=== PATIENT | female | born 1950 | race Caucasian/White ===

== ENCOUNTER 2022-01-11 13:56 | Emergency (ER) | payer MEDICARE ==
[2022-01-11] MEDS ORDERED: Albuterol/Ipratropium 3.0-0.5 MG/3 ML Neb Soln NEB ONE (14:25)
[2022-01-11] MEDS ORDERED: Sodium Chloride 0.9% 10 ML Syringe FLUSH PRN (14:25)
[2022-01-11] MEDS ORDERED: Sodium Chloride 0.9% 1,000 ML IV SCH (14:30)
[2022-01-11] MEDS ORDERED: Ketorolac 30 MG/ML SDV IVPUSH ONE (14:55)
[2022-01-11 15:01] LABS: ESTIMATED GFR 79 mL/min (>60); TROPONIN I HIGH SENSITIVITY 6.2 pg/mL (<=60.3)
[2022-01-11] MEDS ORDERED: Sodium Chloride 0.9% 100 ML IV SCH (16:30)
[2022-01-11] MEDS ORDERED: Iopamidol 755 Mg/ML 100 ML Bottle IV SCH (16:30)
[2022-01-11] MEDS ORDERED: Piperacillin/Tazobactam 4.5 GM in Sodium Chloride 0.9% 50 ML IV ONE (18:18)
== END 2022-01-11 21:17 ==
LOC: JP.ED 13:56
DX: R09.02 Hypoxemia (principal)
CPT/HCPCS: 36415; 71275; 80053; 83605; 84145; 84484; 85025; 85379; 86140; 87040; 94640; 96365; 96367; 96375; 99285; J1885; J2543; J3370; J3490; J7030; J7050; Q9967; J7620

== ENCOUNTER 2023-05-21 10:42 | Inpatient (IN) | payer MEDICARE ==
[2023-05-21 11:28] LABS: BASOPHILS ABSOLUTE AUTO 0.03 K/uL (0.00-0.10); BASOPHILS PERCENT AUTO 0.2 % (0.1-1.3); EOSINOPHILS ABSOLUTE AUTO 0.28 K/uL (0.00-0.40); EOSINOPHILS PERCENT AUTO 1.7 % (0.0-5.4); HEMATOCRIT 36.3 % (34.3-46.0); HEMOGLOBIN 11.6 g/dL (11.2-15.5); IMMATURE GRAN PERCENT AUTO 0.6 % (0.0-0.7); LYMPHOCYTES ABSOLUTE AUTO 1.54 K/uL (0.8-3.3); LYMPHOCYTES PERCENT AUTO 9.4 % (11.4-47.7); MEAN CORPUSCULAR HEMOGLOBIN 24.2 pg (31.6-35.5); MEAN CORPUSCULAR VOLUME 75.8 fL (81.4-99.0); MONOCYTES ABSOLUTE AUTO 1.22 K/uL (0.20-0.90); MONOCYTES PERCENT AUTO 7.4 % (3.3-12.6); NEUTROPHILS ABSOLUTE AUTO 13.27 K/uL (1.0-7.6); NEUTROPHILS PERCENT AUTO 80.7 % (40.0-78.1); PLATELET COUNT,PLT 422 K/uL (130-375); RED BLOOD CELL COUNT 4.79 M/uL (3.77-5.24); WHITE BLOOD CELL COUNT,WBC 16.4 K/uL (3.2-11.0)
[2023-05-21] MEDS: Albuterol 0.083% 2.5 MG/3 ML Neb Soln NEB ONE (11:33)
[2023-05-21 11:55] LABS: A/G RATIO 0.3 (1.2-2.2); ALANINE AMINOTRANSFERASE,ALT 26 U/L (12-78); ALBUMIN 2.1 g/dL (3.4-5.0); ALKALINE PHOSPHATASE 113 U/L (46-116); BILIRUBIN TOTAL 0.3 mg/dL (0.2-1.0); BLOOD UREA NITROGEN,BUN 11 mg/dL (7-18); CALCIUM 8.3 mg/dL (8.5-10.1); CARBON DIOXIDE,CO2 28 mmol/L (21-32); CHLORIDE,CL 101 mmol/L (100-108); CREATININE 0.8 mg/dL (0.6-1.0); EST CRCL DRUG DOSING (CG) 53.35 mL/min; ESTIMATED GFR 79 mL/min (>60); GLUCOSE RANDOM 124 mg/dL (74-106); POTASSIUM,K 3.3 mmol/L (3.6-5.2); PROTEIN TOTAL,TP 8.6 g/dL (6.4-8.2); SODIUM,NA 139 mmol/L (140-148)
[2023-05-21 12:00] LABS: BASE EXCESS ARTERIAL 1.7 mm/L; BICARBONATE,ARTERIAL 23.5 mmol/L (22.0-26.0); CARBOXYHEMOGLOBIN 2.6 % (0.0-1.6); METHEMOGLOBIN 0.8 %; O2 SATURATION ARTERIAL 96.3 % (95.0-98.0); PCO2 ARTERIAL 28.9 mmHg (35.0-42.0); PO2 ARTERIAL 75.1 mmHg (75.0-100.0); TOTAL HEMOGLOBIN 12.4 g/dL (12.0-16.0)
[2023-05-21 12:03] LABS: CORONAVIRUS COVID-19 NAA NEGATIVE (NEGATIVE); INFLUENZA A NAA NEGATIVE (NEGATIVE); INFLUENZA B NAA NEGATIVE (NEGATIVE); RESPIRATORY SYNCYTIAL VIR NAA NEGATIVE (NEGATIVE)
[2023-05-21 12:07] LABS: ANION GAP 13.3 mmol/L (5.0-14.0)
[2023-05-21] MEDS: cefTRIAXone 2 GM in Sodium Chloride 0.9% 50 ML IV ONE (12:08)
[2023-05-21 12:30] LABS: ASPARTATE AMNIOTRANSFERASE,AST 33 U/L (15-37)
[2023-05-21] MEDS: Sodium Chloride 0.9% 10 ML Syringe FLUSH PRN (12:34)
[2023-05-21] MEDS: Ibuprofen 600 MG Tab PO ONE (13:08)
[2023-05-21] MEDS: Pregabalin 75 MG Cap PO ONE (13:08)
[2023-05-21] MEDS: Sodium Chloride 0.9% 1,000 ML IV SCH (13:14)
[2023-05-21 14:43] LABS: APPEARANCE,URINE SLIGHTLY CLOUDY (CLEAR); BILIRUBIN,URINE NEGATIVE (NEGATIVE); COLOR,URINE YELLOW (YELLOW); GLUCOSE,URINE NEGATIVE (NEGATIVE); KETONES,URINE NEGATIVE (NEGATIVE); LEUKOCYTE ESTERASE,URINE NEGATIVE (NEGATIVE); NITRITE,URINE NEGATIVE (NEGATIVE); OCCULT BLOOD,URINE SMALL (NEGATIVE); PROTEIN,URINE 30 mg/dL (NEGATIVE); UROBILINOGEN,URINE 0.2 EU/dL (0.2-1.0)
[2023-05-21 14:49] LABS: AMORPHOUS SEDIMENT,URINE NOT SEEN; BACTERIA,URINE FEW; EPITHELIAL CELLS,URINE RARE; MUCUS,URINE NOT SEEN; WBC,URINE 0-5 (0-5)
[2023-05-21] MEDS ORDERED: Ondansetron 4 MG/2 ML SDV IV PRN (16:27)
[2023-05-21] MEDS ORDERED: Sennosides/Docusate Sodium 50-8.6 MG Tab PO PRN (16:27)
[2023-05-21] MEDS ORDERED: Magnesium Hydroxide 400 MG/5 ML Susp 30 ML Cup PO PRN (16:27)
[2023-05-21] MEDS: Levofloxacin/Dextrose 5%-Water 750 MG in Premix Bag 1 BAG IV SCH (16:31)
[2023-05-21] MEDS: Potassium Chloride 20 MEQ Tab.ER PO ONE (17:46)
[2023-05-21] MEDS: Enoxaparin 40 MG/0.4 ML Syringe SUBCUT SCH (17:46)
[2023-05-21] MEDS: methylPREDNISolone Sodium Succinate 125 MG/2 ML SDV IVPUSH ONE (17:46)
[2023-05-21] MEDS: Acetaminophen 325 MG Tab PO PRN (18:05)
[2023-05-21] MEDS: Melatonin 3 MG Tab PO PRN (20:39)
[2023-05-21] MEDS: Pregabalin 75 MG Cap PO SCH (20:39)
[2023-05-21] MEDS: Lactobacillus Rhamnosus GG (Probiotic) Cap PO SCH (20:39)
[2023-05-21] MEDS: Albuterol 0.083% 2.5 MG/3 ML Neb Soln NEB PRN (23:40)
[2023-05-22] MEDS: Sodium Chloride 0.9% 1,000 ML IV SCH (00:54)
[2023-05-22 05:56] LABS: HEMATOCRIT 34.4 % (34.3-46.0); MEAN CORPUSCULAR HEMOGLOBIN 24.6 pg (31.6-35.5); MEAN CORPUSCULAR VOLUME 76.8 fL (81.4-99.0); RED BLOOD CELL COUNT 4.48 M/uL (3.77-5.24); WHITE BLOOD CELL COUNT,WBC 13.4 K/uL (3.2-11.0)
[2023-05-22 06:11] LABS: ANION GAP 11.2 mmol/L (5.0-14.0); CALCIUM 8.4 mg/dL (8.5-10.1); CREATININE 0.8 mg/dL (0.6-1.0); EST CRCL DRUG DOSING (CG) 53.35 mL/min; POTASSIUM,K 3.8 mmol/L (3.6-5.2)
[2023-05-22] MEDS: predniSONE 20 MG Tab PO SCH (08:09)
[2023-05-22] MEDS: cefTRIAXone 2 GM in Sodium Chloride 0.9% 50 ML IV SCH (11:44)
[2023-05-22] MEDS: Benzonatate 100 MG Cap PO PRN (11:49)
[2023-05-23 05:25] LABS: HEMATOCRIT 32.9 % (34.3-46.0); HEMOGLOBIN 10.4 g/dL (11.2-15.5); MEAN CORPUSCULAR HEMOGLOBIN 24.4 pg (31.6-35.5); MEAN CORPUSCULAR HGB CONC 31.6 g/dL (31.6-35.5); RED BLOOD CELL COUNT 4.27 M/uL (3.77-5.24); WHITE BLOOD CELL COUNT,WBC 18.7 K/uL (3.2-11.0)
[2023-05-23 05:54] LABS: C-REACTIVE PROTEIN 11.85 mg/dL (<0.50); CALCIUM 8.3 mg/dL (8.5-10.1); CREATININE 0.7 mg/dL (0.6-1.0); EST CRCL DRUG DOSING (CG) 60.98 mL/min; POTASSIUM,K 3.3 mmol/L (3.6-5.2)
[2023-05-23 06:05] LABS: ANION GAP 12.3 mmol/L (5.0-14.0)
[2023-05-23] MEDS: Potassium Chloride 20 MEQ Tab.ER PO ONE (08:24)
[2023-05-23] MEDS: Iopamidol 755 Mg/ML 100 ML Bottle IV ONE (12:45)
[2023-05-23] MEDS: Sodium Chloride 0.9% 100 ML IV SCH (12:46)
[2023-05-23] MEDS: Meropenem 1 GM in Sodium Chloride 0.9% 100 ML IV SCH (14:14)
[2023-05-23] MEDS: Doxycycline 100 MG in Sodium Chloride 0.9% 100 ML IV SCH (15:34)
[2023-05-24] MEDS: guaiFENesin/Dextromethorphan 100-10 MG/5 ML Soln 10 ML Cup PO PRN (04:43)
[2023-05-24 05:02] LABS: HEMATOCRIT 35.8 % (34.3-46.0); HEMOGLOBIN 11.5 g/dL (11.2-15.5); MEAN CORPUSCULAR HEMOGLOBIN 24.2 pg (31.6-35.5); MEAN CORPUSCULAR HGB CONC 32.1 g/dL (31.6-35.5); MEAN CORPUSCULAR VOLUME 75.2 fL (81.4-99.0); RED BLOOD CELL COUNT 4.76 M/uL (3.77-5.24); WHITE BLOOD CELL COUNT,WBC 17.6 K/uL (3.2-11.0)
[2023-05-24 05:20] LABS: CALCIUM 8.4 mg/dL (8.5-10.1); CREATININE 0.8 mg/dL (0.6-1.0); EST CRCL DRUG DOSING (CG) 53.35 mL/min; POTASSIUM,K 3.8 mmol/L (3.6-5.2)
[2023-05-24 05:25] LABS: ANION GAP 12.8 mmol/L (5.0-14.0)
[2023-05-24] MEDS: Albuterol 0.083% 2.5 MG/3 ML Neb Soln NEB SCH (11:24)
[2023-05-24] MEDS: Codeine/guaiFENesin 10-100 MG/5 ML Syrup 5 ML Cup PO PRN (15:42)
[2023-05-24] MEDS: Codeine/guaiFENesin 10-100 MG/5 ML Syrup 5 ML Cup PO ONE (20:30)
[2023-05-24] MEDS: Benzocaine/Cetylpyridinium/Menthol Lozenge MUCMEM PRN (21:30)
[2023-05-25] MEDS: Codeine/guaiFENesin 10-100 MG/5 ML Syrup 5 ML Cup PO PRN (04:22)
[2023-05-25 04:42] LABS: HEMATOCRIT 36.2 % (34.3-46.0); HEMOGLOBIN 11.5 g/dL (11.2-15.5); MEAN CORPUSCULAR HEMOGLOBIN 24.2 pg (31.6-35.5); MEAN CORPUSCULAR HGB CONC 31.8 g/dL (31.6-35.5); MEAN CORPUSCULAR VOLUME 76.2 fL (81.4-99.0); RED BLOOD CELL COUNT 4.75 M/uL (3.77-5.24); WHITE BLOOD CELL COUNT,WBC 15.1 K/uL (3.2-11.0)
[2023-05-25 05:04] LABS: ANION GAP 7.7 mmol/L (5.0-14.0); C-REACTIVE PROTEIN 17.29 mg/dL (<0.50); CALCIUM 8.7 mg/dL (8.5-10.1); CREATININE 0.7 mg/dL (0.6-1.0); EST CRCL DRUG DOSING (CG) 60.98 mL/min; MAGNESIUM 2.1 mg/dL (1.8-2.4); POTASSIUM,K 3.7 mmol/L (3.6-5.2)
[2023-05-25] MEDS: Furosemide 20 MG/2 ML VIAL IVPUSH ONE (11:44)
[2023-05-25] MEDS: Linezolid 600 MG in Premix Bag 1 BAG IV SCH (11:44)
[2023-05-25] MEDS: Acetylcysteine 20% 200 MG/ML 4 ML Nebulizer Soln SDV NEB SCH (14:15)
[2023-05-25] MEDS: Ketorolac 30 MG/ML SDV IVPUSH ONE (15:28)
[2023-05-25] MEDS: Codeine/guaiFENesin 10-100 MG/5 ML Syrup 5 ML Cup PO ONE (22:37)
[2023-05-25] MEDS: oxyCODONE 5 MG Tab PO PRN (23:12)
[2023-05-26 12:46] LABS: BASE EXCESS ARTERIAL 3.3 mm/L; BICARBONATE,ARTERIAL 26.3 mmol/L (22.0-26.0); CARBOXYHEMOGLOBIN 2.2 % (0.0-1.6); METHEMOGLOBIN 0.7 %; O2 SATURATION ARTERIAL 98.1 % (95.0-98.0); OXYHEMOGLOBIN 95.3 %; PCO2 ARTERIAL 35.2 mmHg (35.0-42.0); PO2 ARTERIAL 93.6 mmHg (75.0-100.0); TOTAL HEMOGLOBIN 10.7 g/dL (12.0-16.0)
[2023-05-26] MEDS: Codeine/guaiFENesin 10-100 MG/5 ML Syrup 5 ML Cup PO PRN (15:37)
[2023-05-27] MEDS: Ondansetron 4 MG Tab.DIS PO PRN (05:46)
[2023-05-27 05:50] LABS: HEMATOCRIT 31.8 % (34.3-46.0); HEMOGLOBIN 10.2 g/dL (11.2-15.5); MEAN CORPUSCULAR HEMOGLOBIN 23.9 pg (31.6-35.5); MEAN CORPUSCULAR HGB CONC 32.1 g/dL (31.6-35.5); MEAN CORPUSCULAR VOLUME 74.6 fL (81.4-99.0); RED BLOOD CELL COUNT 4.26 M/uL (3.77-5.24); WHITE BLOOD CELL COUNT,WBC 10.2 K/uL (3.2-11.0)
[2023-05-27 06:05] LABS: CALCIUM 7.8 mg/dL (8.5-10.1); CREATININE 0.7 mg/dL (0.6-1.0); EST CRCL DRUG DOSING (CG) 60.07 mL/min; POTASSIUM,K 3.6 mmol/L (3.6-5.2)
[2023-05-27 06:24] LABS: ANION GAP 12.6 mmol/L (5.0-14.0)
[2023-05-27 06:46] LABS: LACTIC ACID 1.1 mmol/L (0.4-2.0)
== END 2023-05-27 15:20 | DRG 193 ==
LOC: JP.ED 10:42 → JP.MS 16:09
PROVIDERS: ADMIT Internal Medicine; ATTEND Hospitalist
PROC: 5A0945A Assistance with Respiratory Ventilation, 24-96 Consecutive Hours, High Flow/Velocity Cannula (ICD-10-PCS; principal; 2023-05-21)
PROC: 4A033R1 Measurement of Arterial Saturation, Peripheral, Percutaneous Approach (ICD-10-PCS; 2023-05-21)
DX: J18.9 Pneumonia, unspecified organism (principal); R09.02 Hypoxemia; J96.21 Acute and chronic respiratory failure with hypoxia; J84.9 Interstitial pulmonary disease, unspecified; M05.79 Rheumatoid arthritis with rheumatoid factor of multiple sites without organ or systems involvement; R79.89 Other specified abnormal findings of blood chemistry; D72.829 Elevated white blood cell count, unspecified; J84.10 Pulmonary fibrosis, unspecified; R59.0 Localized enlarged lymph nodes; M41.9 Scoliosis, unspecified; G89.29 Other chronic pain; M54.2 Cervicalgia; Z79.899 Other long term (current) drug therapy; Z87.891 Personal history of nicotine dependence
CPT/HCPCS: 0241U; 36415; 36600; 71045; 71250; 71275; 80048; 80053; 81001; 82803; 83605; 83735; 83880; 85025; 85027; 85379; 86140; 87040; 93005; 93010; 94640; 94667; 99222; 99232; 99238; 99285; 96365; A9270-GY; J0696; J1650; J1885; J1940; J1956; J2020; J2185; J2930; J3490; J7030; J7512; Q0162; Q9967

== ENCOUNTER 2025-01-14 11:39 | Inpatient (IN) | payer MEDICARE ==
[2025-01-14 12:20] LABS: BASOPHILS ABSOLUTE AUTO 0.05 K/uL (0.00-0.10); BASOPHILS PERCENT AUTO 0.4 % (0.1-1.3); EOSINOPHILS ABSOLUTE AUTO 0.38 K/uL (0.00-0.40); EOSINOPHILS PERCENT AUTO 2.9 % (0.0-5.4); IMMATURE GRAN ABSOLUTE AUTO 0.05 K/uL (0.00-0.23); IMMATURE GRAN PERCENT AUTO 0.4 % (0.0-0.7); LYMPHOCYTES ABSOLUTE AUTO 0.68 K/uL (0.8-3.3); LYMPHOCYTES PERCENT AUTO 5.2 % (11.4-47.7); MONOCYTES ABSOLUTE AUTO 0.81 K/uL (0.20-0.90); MONOCYTES PERCENT AUTO 6.2 % (3.3-12.6); NEUTROPHILS ABSOLUTE AUTO 11.11 K/uL (1.0-7.6); NEUTROPHILS PERCENT AUTO 84.9 % (40.0-78.1); PLATELET COUNT,PLT 356 K/uL (130-375); RED BLOOD CELL COUNT 4.93 M/uL (3.77-5.24); WHITE BLOOD CELL COUNT,WBC 13.1 K/uL (3.2-11.0)
[2025-01-14 12:31] LABS: CORONAVIRUS COVID-19 NAA NEGATIVE (NEGATIVE); INFLUENZA A NAA NEGATIVE (NEGATIVE); INFLUENZA B NAA NEGATIVE (NEGATIVE); RESPIRATORY SYNCYTIAL VIR NAA NEGATIVE (NEGATIVE)
[2025-01-14 12:45] LABS: BASE EXCESS ARTERIAL 2.4 mm/L; BICARBONATE,ARTERIAL 26.7 mmol/L (22.0-26.0); O2 SATURATION ARTERIAL 91.2 % (95.0-98.0); OXYHEMOGLOBIN 89.1 %; PCO2 ARTERIAL 42.4 mmHg (35.0-42.0); PO2 ARTERIAL 63.8 mmHg (75.0-100.0); TOTAL HEMOGLOBIN 12.9 g/dL (12.0-16.0)
[2025-01-14 12:47] LABS: A/G RATIO 0.7 (1.2-2.2); ALANINE AMINOTRANSFERASE,ALT 26 U/L (12-78); ASPARTATE AMNIOTRANSFERASE,AST 27 U/L (15-37); BILIRUBIN TOTAL 0.4 mg/dL (0.2-1.0); BLOOD UREA NITROGEN,BUN 23 mg/dL (7-18); CARBON DIOXIDE,CO2 31 mmol/L (21-32); CHLORIDE,CL 103 mmol/L (100-108); CREATININE 0.7 mg/dL (0.6-1.0); EST CRCL DRUG DOSING (CG) 59.21 mL/min; ESTIMATED GFR 91 mL/min (>60); GLUCOSE RANDOM 120 mg/dL (74-106); POTASSIUM,K 3.9 mmol/L (3.6-5.2); PRO B-TYPE NATRIUR PEPT,BNPPRO 4315 pg/mL (5-125); PROTEIN TOTAL,TP 7.3 g/dL (6.4-8.2); SODIUM,NA 141 mmol/L (140-148); TROPONIN I HIGH SENSITIVITY 32.2 pg/mL (<=60.3)
[2025-01-14] MEDS ORDERED: Sodium Chloride 0.9% 10 ML Syringe FLUSH PRN (13:24)
[2025-01-14] MEDS: Iopamidol 755 Mg/ML 100 ML Bottle IV SCH (13:38)
[2025-01-14] MEDS: methylPREDNISolone Sodium Succinate 125 MG/2 ML SDV IVPUSH ONE ×2 (14:45→23:12)
[2025-01-14 15:00] LABS: APPEARANCE,URINE CLOUDY (CLEAR); GLUCOSE,URINE NEGATIVE (NEGATIVE); OCCULT BLOOD,URINE SMALL (NEGATIVE)
[2025-01-14 15:10] LABS: SQUAMOUS EPITHELIAL CELLS,UR RARE /HPF; UROTHELIAL CELLS,URINE NOT SEEN /HPF
[2025-01-14] MEDS ORDERED: Ondansetron 4 MG Tab.DIS PO PRN (15:37)
[2025-01-14] MEDS ORDERED: Sennosides/Docusate Sodium 50-8.6 MG Tab PO PRN (15:37)
[2025-01-14] MEDS ORDERED: Ondansetron 4 MG/2 ML SDV IV PRN (15:37)
[2025-01-14] MEDS ORDERED: Magnesium Hydroxide 400 MG/5 ML Susp 30 ML Cup PO PRN (15:37)
[2025-01-14] MEDS ORDERED: Albuterol 0.083% 2.5 MG/3 ML Neb Soln NEB PRN (15:37)
[2025-01-14] MEDS: methylPREDNISolone Sodium Succinate 40 MG/1 ML SDV IVPUSH ONE (16:04)
[2025-01-14] MEDS: Lactobacillus Rhamnosus GG (Probiotic) Cap PO SCH (20:05)
[2025-01-15 06:12] LABS: PLATELET COUNT,PLT 323.0 K/uL (130-375); RED BLOOD CELL COUNT 4.36 M/uL (3.77-5.24); WHITE BLOOD CELL COUNT,WBC 11.4 K/uL (3.2-11.0)
[2025-01-15 06:25] LABS: BLOOD UREA NITROGEN,BUN 23.0 mg/dL (7-18); CARBON DIOXIDE,CO2 30.0 mmol/L (21-32); CHLORIDE,CL 104.0 mmol/L (100-108); CREATININE 0.7 mg/dL (0.6-1.0); EST CRCL DRUG DOSING (CG) 59.21 mL/min; ESTIMATED GFR 91.0 mL/min (>60); GLUCOSE RANDOM 163.0 mg/dL (74-106); POTASSIUM,K 3.9 mmol/L (3.6-5.2); SODIUM,NA 141.0 mmol/L (140-148)
[2025-01-15] MEDS: Benzocaine/Cetylpyridinium/Menthol Lozenge MUCMEM PRN (13:51)
[2025-01-15] MEDS: Codeine/guaiFENesin 10-100 MG/5 ML Syrup 5 ML Cup PO PRN (17:03)
[2025-01-17 06:04] LABS: PLATELET COUNT,PLT 332.0 K/uL (130-375); RED BLOOD CELL COUNT 4.26 M/uL (3.77-5.24); WHITE BLOOD CELL COUNT,WBC 11.2 K/uL (3.2-11.0)
[2025-01-17 06:23] LABS: BLOOD UREA NITROGEN,BUN 15.0 mg/dL (7-18); CARBON DIOXIDE,CO2 34.0 mmol/L (21-32); CHLORIDE,CL 104.0 mmol/L (100-108); CREATININE 0.6 mg/dL (0.6-1.0); EST CRCL DRUG DOSING (CG) 69.08 mL/min; ESTIMATED GFR 95.0 mL/min (>60); GLUCOSE RANDOM 90.0 mg/dL (74-106); POTASSIUM,K 3.6 mmol/L (3.6-5.2); SODIUM,NA 143.0 mmol/L (140-148)
[2025-01-18 05:54] LABS: PLATELET COUNT,PLT 353.0 K/uL (130-375); RED BLOOD CELL COUNT 4.69 M/uL (3.77-5.24); WHITE BLOOD CELL COUNT,WBC 12.6 K/uL (3.2-11.0)
[2025-01-18 06:07] LABS: BLOOD UREA NITROGEN,BUN 18.0 mg/dL (7-18); CARBON DIOXIDE,CO2 35.0 mmol/L (21-32); CHLORIDE,CL 100.0 mmol/L (100-108); CREATININE 0.7 mg/dL (0.6-1.0); EST CRCL DRUG DOSING (CG) 59.21 mL/min; ESTIMATED GFR 91.0 mL/min (>60); GLUCOSE RANDOM 96.0 mg/dL (74-106); POTASSIUM,K 3.4 mmol/L (3.6-5.2); SODIUM,NA 140.0 mmol/L (140-148)
[2025-01-18] MEDS: Potassium Chloride 20 MEQ Tab.ER PO ONE ×2 (08:48→17:13)
[2025-01-18] MEDS ORDERED: Sodium Chloride 0.9% 10 ML Syringe IV PRN (10:41)
[2025-01-19 05:57] LABS: PLATELET COUNT,PLT 383.0 K/uL (130-375); RED BLOOD CELL COUNT 4.9 M/uL (3.77-5.24); WHITE BLOOD CELL COUNT,WBC 14.5 K/uL (3.2-11.0)
[2025-01-19 06:12] LABS: BLOOD UREA NITROGEN,BUN 20.0 mg/dL (7-18); CARBON DIOXIDE,CO2 33.0 mmol/L (21-32); CHLORIDE,CL 100.0 mmol/L (100-108); CREATININE 0.7 mg/dL (0.6-1.0); EST CRCL DRUG DOSING (CG) 59.21 mL/min; ESTIMATED GFR 91.0 mL/min (>60); GLUCOSE RANDOM 100.0 mg/dL (74-106); POTASSIUM,K 4.5 mmol/L (3.6-5.2); SODIUM,NA 138.0 mmol/L (140-148)
[2025-01-25 05:52] LABS: PLATELET COUNT,PLT 374.0 K/uL (130-375); RED BLOOD CELL COUNT 4.87 M/uL (3.77-5.24); WHITE BLOOD CELL COUNT,WBC 14.3 K/uL (3.2-11.0)
[2025-01-25 06:05] LABS: BLOOD UREA NITROGEN,BUN 15.0 mg/dL (7-18); CARBON DIOXIDE,CO2 32.0 mmol/L (21-32); CHLORIDE,CL 99.0 mmol/L (100-108); CREATININE 0.8 mg/dL (0.6-1.0); EST CRCL DRUG DOSING (CG) 51.79 mL/min; ESTIMATED GFR 78.0 mL/min (>60); GLUCOSE RANDOM 98.0 mg/dL (74-106); POTASSIUM,K 4.3 mmol/L (3.6-5.2); SODIUM,NA 137.0 mmol/L (140-148)
[2025-01-25] MEDS: LORazepam 2 MG/ML SDV IVPUSH ONE (15:19)
[2025-01-27 06:00] LABS: PLATELET COUNT,PLT 392.0 K/uL (130-375); RED BLOOD CELL COUNT 4.84 M/uL (3.77-5.24); WHITE BLOOD CELL COUNT,WBC 15.2 K/uL (3.2-11.0)
[2025-01-27 06:17] LABS: BLOOD UREA NITROGEN,BUN 19.0 mg/dL (7-18); CARBON DIOXIDE,CO2 30.0 mmol/L (21-32); CHLORIDE,CL 101.0 mmol/L (100-108); CREATININE 0.7 mg/dL (0.6-1.0); EST CRCL DRUG DOSING (CG) 59.19 mL/min; ESTIMATED GFR 91.0 mL/min (>60); GLUCOSE RANDOM 91.0 mg/dL (74-106); POTASSIUM,K 4.2 mmol/L (3.6-5.2); SODIUM,NA 140.0 mmol/L (140-148)
[2025-01-29 05:34] LABS: PLATELET COUNT,PLT 418.0 K/uL (130-375); RED BLOOD CELL COUNT 4.69 M/uL (3.77-5.24); WHITE BLOOD CELL COUNT,WBC 15.5 K/uL (3.2-11.0)
[2025-01-29 05:53] LABS: BLOOD UREA NITROGEN,BUN 18.0 mg/dL (7-18); CARBON DIOXIDE,CO2 32.0 mmol/L (21-32); CHLORIDE,CL 102.0 mmol/L (100-108); CREATININE 0.7 mg/dL (0.6-1.0); EST CRCL DRUG DOSING (CG) 59.19 mL/min; ESTIMATED GFR 91.0 mL/min (>60); GLUCOSE RANDOM 90.0 mg/dL (74-106); POTASSIUM,K 4.6 mmol/L (3.6-5.2); SODIUM,NA 140.0 mmol/L (140-148)
[2025-01-31 05:45] LABS: PLATELET COUNT,PLT 431.0 K/uL (130-375); RED BLOOD CELL COUNT 4.78 M/uL (3.77-5.24); WHITE BLOOD CELL COUNT,WBC 15.1 K/uL (3.2-11.0)
[2025-01-31 06:16] LABS: ALANINE AMINOTRANSFERASE,ALT 22 U/L (12-78); ASPARTATE AMNIOTRANSFERASE,AST 16 U/L (15-37); BILIRUBIN TOTAL 0.2 mg/dL (0.2-1.0); BLOOD UREA NITROGEN,BUN 19 mg/dL (7-18); CARBON DIOXIDE,CO2 33 mmol/L (21-32); CHLORIDE,CL 104 mmol/L (100-108); CREATININE 0.7 mg/dL (0.6-1.0); EST CRCL DRUG DOSING (CG) 59.19 mL/min; ESTIMATED GFR 91 mL/min (>60); GLUCOSE RANDOM 87 mg/dL (74-106); POTASSIUM,K 4.7 mmol/L (3.6-5.2); PROTEIN TOTAL,TP 6.1 g/dL (6.4-8.2); SODIUM,NA 141 mmol/L (140-148)
[2025-01-31 06:18] LABS: A/G RATIO 0.7 (1.2-2.2)
== END 2025-02-02 11:02 | disposition home or self-care (01) | DRG 196 ==
LOC: JP.ED 11:39 → JP.MS 14:55
PROVIDERS: ADMIT Internal Medicine; ATTEND Hospitalist
PROC: 3E03329 Introduction of Other Anti-infective into Peripheral Vein, Percutaneous Approach (ICD-10-PCS; principal; 2025-01-14)
PROC: 3E0F7SF Introduction of Other Gas into Respiratory Tract, Via Natural or Artificial Opening (ICD-10-PCS; 2025-01-14)
PROC: 4A03XR1 Measurement of Arterial Saturation, Peripheral, External Approach (ICD-10-PCS; 2025-01-14)
DX: J84.9 Interstitial pulmonary disease, unspecified (principal); J96.21 Acute and chronic respiratory failure with hypoxia; Z86.16 Personal history of COVID-19; M05.79 Rheumatoid arthritis with rheumatoid factor of multiple sites without organ or systems involvement; Z66 Do not resuscitate; H54.7 Unspecified visual loss; J44.9 Chronic obstructive pulmonary disease, unspecified; J84.10 Pulmonary fibrosis, unspecified; K21.9 Gastro-esophageal reflux disease without esophagitis; F41.9 Anxiety disorder, unspecified; F32.A Depression, unspecified; D72.829 Elevated white blood cell count, unspecified; M19.90 Unspecified osteoarthritis, unspecified site; Z98.890 Other specified postprocedural states; Z79.82 Long term (current) use of aspirin; Z79.2 Long term (current) use of antibiotics; Z79.899 Other long term (current) drug therapy; Z79.1 Long term (current) use of non-steroidal anti-inflammatories (NSAID); Z99.81 Dependence on supplemental oxygen
CPT/HCPCS: 36415; 36600; 71045 ×2; 71275 ×2; 80053; 81001; 82803; 83605; 83735; 83880; 84484; 85025; 85379; 86140; 87040 ×2; 87086; 87637; 94640; 96374; 99285 ×2; A9270 ×2; J7030; Q9967; 80048; 85027; 87070; 87205; 94667; 94668; 97161-GP; 97530-GP; J0713; J1271; J1650; J2060; J2919; J7512; J7612-GY